=== PATIENT | female | born 1995 | race Caucasian/White ===

== ENCOUNTER 2021-12-31 09:32 | Emergency (ER) | payer OTHER ==
[~2021-12-31] VITALS: Ht 162.6 cm; Wt 64.5 kg
[2021-12-31] MEDS ORDERED: PROPRANOLOL HCL40 M2 PO (09:41)
[2021-12-31 10:55] LABS: STREP SCREEN NEGATIVE (NEGATIVE)
[2021-12-31] MEDS ORDERED: ONDANSETRON HYDR4 MG PO (11:13)
[2021-12-31 11:49] VITALS: BP 118/79
== END 2021-12-31 11:51 | disposition home or self-care (01) ==
LOC: ED 09:32
PROVIDERS: Nurse Practitioner Family
DX: J02.9 Acute pharyngitis, unspecified (principal)